=== PATIENT | female | born 1985 | race Caucasian/White ===

== ENCOUNTER 2017-06-06 05:22 | Emergency (ER) | payer SELFPAY ==
[~2017-06-06] VITALS: Ht 154.9 cm; Wt 84.0 kg
[~2017-06-06 05:22] MED LIST: BACTRIM,SEPT1 TABLET PO; LAMISIL AT12 GM TP; LIDOCAINE20 MG/1 M5 PO; PSEUDOEPHEDRINE30 MG PO
[2017-06-06] MEDS ORDERED: ZITHROMAX Z-PA250 MG PO (06:24)
[2017-06-06 06:51] VITALS: BP 129/74
== END 2017-06-06 06:52 | disposition home or self-care (01) ==
LOC: EME 05:22
DX: J20.9 Acute bronchitis, unspecified (principal); J06.9 Acute upper respiratory infection, unspecified
CPT/HCPCS: 87502; 99281; 99283